=== PATIENT | female | born 1970 | race Caucasian/White ===

== ENCOUNTER → 2024-01-19 | Outpatient (REF) | payer OTHER | LOC: M SFHCRHEU 14:40 | PROVIDERS: ATTEND Internal Medicine | DX: R76.8 Other specified abnormal immunological findings in serum (principal); R79.82 Elevated C-reactive protein (CRP) ==

== ENCOUNTER → 2024-07-06 | Outpatient (REF) | payer OTHER | LOC: M SFHCRHEU 14:45 | PROVIDERS: ATTEND Internal Medicine | DX: R76.8 Other specified abnormal immunological findings in serum (principal); Z68.37 Body mass index [BMI] 37.0-37.9, adult; Z53.9 Procedure and treatment not carried out, unspecified reason ==